=== PATIENT | male | born 1985 | race Caucasian/White ===

== ENCOUNTER 2021-01-02 22:43 | Emergency (ER) | payer OTHER ==
[2021-01-03 00:27] LABS: BILIRUBIN NEGATIVE (NEGATIVE); BLOOD NEGATIVE Ery/uL (NEGATIVE); CLARITY CLEAR (CLEAR); COLOR YELLOW (YELLOW); GLUCOSE (U) 3+ mg/dL (NORMAL); LEUKOCYTES NEGATIVE Leu/uL (NEGATIVE); NITRITE NEGATIVE (NEGATIVE); PROTEIN NEGATIVE (NEGATIVE); SPECIFIC GRAVITY 1.025 (1.001-1.030); UROBILINOGEN 0.2 mg/dL (0.2-1.0)
[2021-01-03] MEDS ORDERED: FLOMAX 0.4 MG0.4 MG PO (01:03)
[2021-01-03] MEDS ORDERED: MACRODANTIN100 MG PO (01:03)
== END 2021-01-03 01:27 | disposition home or self-care (01) ==
LOC: FER 22:43
PROVIDERS: Emergency Medicine
DX: R33.9 Retention of urine, unspecified (principal); F17.210 Nicotine dependence, cigarettes, uncomplicated
CPT/HCPCS: 81003

== ENCOUNTER 2021-01-03 11:56 | Emergency (ER) | payer OTHER ==
[~2021-01-03 11:56] MED LIST: FLOMAX 0.4 MG0.4 MG PO; MACRODANTIN100 MG PO
== END 2021-01-03 13:55 | disposition home or self-care (01) ==
LOC: FER 11:56
DX: T83.038A Leakage of other urinary catheter, initial encounter (principal); R33.9 Retention of urine, unspecified; F17.210 Nicotine dependence, cigarettes, uncomplicated; Y84.6 Urinary catheterization as the cause of abnormal reaction of the patient, or of later complication, without mention of misadventure at the time of the procedure
CPT/HCPCS: 99283

== ENCOUNTER 2021-05-09 06:51 | Inpatient (IN) | payer OTHER ==
[~2021-05-09] VITALS: Ht 188 cm; Wt 121.2 kg
[2021-05-09 08:04] LABS: BASOPHIL 1.2 % (0-2); EOSINOPHIL 1.4 % (0-5); HGB 14.3 g/dl (13.2-18.0); LYMPHOCYTE 30.6 % (15-48); MCH 32.4 pg (25.0-31.0); MPV 10.2 fL (6.0-9.5); NRBC 0; PLT 251 K/uL (150-400); RBC 4.42 M/uL (4.70-6.00); RDW 12.5 % (11.5-14.0); WBC 8.5 K/uL (4.0-10.5)
[2021-05-09 08:50] LABS: BILIRUBIN NEGATIVE (NEGATIVE); BLOOD TRACE-INTACT Ery/uL (NEGATIVE); CLARITY CLEAR (CLEAR); COLOR YELLOW (YELLOW); GLUCOSE (U) 3+ mg/dL (NORMAL); LEUKOCYTES NEGATIVE Leu/uL (NEGATIVE); NITRITE NEGATIVE (NEGATIVE); PROTEIN NEGATIVE (NEGATIVE); SPECIFIC GRAVITY 1.015 (1.001-1.030); UROBILINOGEN 0.2 mg/dL (0.2-1.0); pH 5.5 (5.0-9.0)
[2021-05-09 08:54] LABS: AMPHETAMINES NEGATIVE (NEGATIVE); BARBITURATES NEGATIVE (NEGATIVE); ECSTASY (MDMA) NEGATIVE (NEGATIVE); MARIJUANA (THC) NEGATIVE (NEGATIVE); METHADONE NEGATIVE (NEGATIVE); OPIATES NEGATIVE (NEGATIVE); OXYCODONE NEGATIVE (NEGATIVE)
[2021-05-09 08:59] LABS: BACTERIA TRACE; URINARY WBC RARE
[2021-05-09 09:17] LABS: IRON % SATURATION 52.4 %SAT (20-50)
[2021-05-09 09:24] LABS: PRO-BNP 54 pg/mL (<125)
[2021-05-09 09:25] LABS: ALBUMIN 3.5 g/dL (3.4-5.0); BILIRUBIN - TOTAL 0.5 mg/dL (0.2-1.0); BUN/CREAT RATIO (CALC) 40.5 RATIO; CREATININE 0.37 mg/dL (0.67-1.17); GLOBULIN (CALCULATION) 3.1 g/dL; POTASSIUM 3.8 mmol/L (3.5-5.1); TOTAL PROTEIN 6.6 g/dL (6.4-8.2)
[2021-05-09 09:28] LABS: LACTIC ACID <0.3 mmol/L (0.4-1.9)
[2021-05-09 09:39] LABS: INR 0.96 (0.9-1.2); PROTHROMBIN TIME 12.2 SECONDS (11.8-13.4); PTT 30.1 SECONDS (24.4-34.7)
[2021-05-09 11:03] LABS: CPK 74 U/L (39-308); LDH 161 U/L (85-227); LIPASE 178 U/L (73-393); MAGNESIUM 2.2 mg/dL (1.8-2.4)
[2021-05-09 11:05] LABS: C-REACTIVE PROTEIN < 0.20 mg/dL (<=0.90)
[2021-05-09 13:55] LABS: CREATININE 0.4 mg/dL (0.67-1.17); POTASSIUM 3.7 mmol/L (3.5-5.1)
[2021-05-09 21:08] LABS: BUN/CREAT RATIO (CALC) 22.6 RATIO; CREATININE 0.31 mg/dL (0.67-1.17); POTASSIUM 3.4 mmol/L (3.5-5.1)
[2021-05-10 07:14] LABS: BASOPHIL 0.9 % (0-2); EOSINOPHIL 1.5 % (0-5); HCT 38.4 % (42.0-52.0); HGB 13.1 g/dl (13.2-18.0); LYMPHOCYTE 37.1 % (15-48); MCH 32.2 pg (25.0-31.0); MCHC 34.1 g/dL (32.0-36.0); MCV 94.3 fL (78.0-100.0); MPV 9.7 fL (6.0-9.5); NEUTROPHIL 52.3 % (41-80); NRBC 0; PLT 169 K/uL (150-400); RBC 4.07 M/uL (4.70-6.00); RDW 12.7 % (11.5-14.0); WBC 6.6 K/uL (4.0-10.5)
[2021-05-10 07:26] LABS: BUN/CREAT RATIO (CALC) 23.1 RATIO; CREATININE 0.26 mg/dL (0.67-1.17); MAGNESIUM 1.9 mg/dL (1.8-2.4); POTASSIUM 3.1 mmol/L (3.5-5.1)
[2021-05-10] MEDS ORDERED: Glucometer (13:29)
[2021-05-10] MEDS ORDERED: SEMGLEE100 UNIT/1 SC (13:29)
[2021-05-10] MEDS ORDERED: HUMULIN R100 UNIT/2 SC (13:29)
[2021-05-10] MEDS ORDERED: Glucose test strips (13:29)
== END 2021-05-10 14:21 | disposition home or self-care (01) | DRG 638 ==
LOC: FER 06:51 → FICU 14:35
PROVIDERS: Emergency Medicine; ADMIT Internal Medicine
DX: E11.10 Type 2 diabetes mellitus with ketoacidosis without coma (principal); Z68.1 Body mass index [BMI] 19.9 or less, adult; F10.20 Alcohol dependence, uncomplicated; K86.89 Other specified diseases of pancreas; Z20.822 Contact with and (suspected) exposure to COVID-19; F17.200 Nicotine dependence, unspecified, uncomplicated; E87.6 Hypokalemia; R63.4 Abnormal weight loss; Z71.6 Tobacco abuse counseling
CPT/HCPCS: 36415; 36600; 71045; 80048; 80053; 80305; 81001; 82009; 82550; 82728; 82803; 82962; 83036; 83540; 83550; 83605; 83615; 83690; 83735; 83880; 84100; 84145; 84439; 84443; 84484; 84550; 84681; 85025; 85610; 85730; 86140; 93005; G0480; J1170; J1650; J1815; J2405; J3411; J3475; J3480; J7030; U0002

== ENCOUNTER 2021-10-04 19:09 | Day surgery (SDCO) | payer OTHER ==
[~2021-10-04] VITALS: Ht 188 cm; Wt 90.1 kg
[~2021-10-04 19:09] MED LIST changes: +Glucometer; +Glucose test strips; +HUMULIN R100 UNIT/2 SC; +SEMGLEE100 UNIT/1 SC
[2021-10-04 19:32] LABS: BASOPHIL 0.3 % (0-2); EOSINOPHIL 0.1 % (0-5); HCT 49.6 % (42.0-52.0); HGB 16.7 g/dl (13.2-18.0); LYMPHOCYTE 12.2 % (15-48); MCH 31.8 pg (25.0-31.0); MCHC 33.7 g/dL (32.0-36.0); MCV 94.5 fL (78.0-100.0); MONOCYTE 4.8 % (0-12); MPV 9.6 fL (6.0-9.5); NEUTROPHIL 81.9 % (41-80); NRBC 0; PLT 265 K/uL (150-400); RBC 5.25 M/uL (4.70-6.00); RDW 12.8 % (11.5-14.0); WBC 15.3 K/uL (4.0-10.5)
[2021-10-04 19:57] LABS: BUN/CREAT RATIO (CALC) 14.1 RATIO; CREATININE 0.64 mg/dL (0.67-1.17); POTASSIUM 3.7 mmol/L (3.5-5.1)
[2021-10-04 20:49] LABS: BILIRUBIN NEGATIVE (NEGATIVE); BLOOD NEGATIVE Ery/uL (NEGATIVE); CLARITY CLEAR (CLEAR); COLOR YELLOW (YELLOW); GLUCOSE (U) 1+ mg/dL (NORMAL); LEUKOCYTES NEGATIVE Leu/uL (NEGATIVE); NITRITE NEGATIVE (NEGATIVE); PROTEIN NEGATIVE (NEGATIVE); SPECIFIC GRAVITY >=1.030 (1.001-1.030); UROBILINOGEN 0.2 mg/dL (0.2-1.0)
[2021-10-05] MEDS ORDERED: METFORMIN HCL500 MG PO ×2 (00:55→15:06)
[2021-10-05] MEDS ORDERED: TAMSULOSIN HCL0.4 MG PO (00:57)
[2021-10-05] MEDS ORDERED: LANTUS **100 UNITS/ SC ×2 (00:58→15:06)
[2021-10-05] MEDS ORDERED: INSULIN AS100 UNIT/3 SC (01:01)
[2021-10-05 06:37] LABS: BASOPHIL 0.4 % (0-2); EOSINOPHIL 1.3 % (0-5); HCT 44.4 % (42.0-52.0); HGB 14.7 g/dl (13.2-18.0); MCH 31.3 pg (25.0-31.0); MCHC 33.1 g/dL (32.0-36.0); MCV 94.7 fL (78.0-100.0); MONOCYTE 7.7 % (0-12); MPV 9.9 fL (6.0-9.5); NEUTROPHIL 61.9 % (41-80); NRBC 0; PLT 228 K/uL (150-400); RBC 4.69 M/uL (4.70-6.00); RDW 13.2 % (11.5-14.0); WBC 10.1 K/uL (4.0-10.5)
[2021-10-05 07:01] LABS: ALBUMIN 3.5 g/dL (3.4-5.0); BILIRUBIN - TOTAL 0.5 mg/dL (0.2-1.0); BUN/CREAT RATIO (CALC) 15.5 RATIO; CREATININE 0.71 mg/dL (0.67-1.17); GLOBULIN (CALCULATION) 3.4 g/dL; MAGNESIUM 2.3 mg/dL (1.8-2.4); PHOSPHORUS 3.9 mg/dL (2.6-4.7); POTASSIUM 4.1 mmol/L (3.5-5.1); TOTAL PROTEIN 6.9 g/dL (6.4-8.2)
--- NOTE | 2021-10-05 11:15 | NUR ---
10/05/21 Please consider full admit or discharge. Thank You.
== END 2021-10-05 15:31 | disposition home or self-care (01) ==
LOC: FER 19:09 → FMS 22:09
PROVIDERS: Internal Medicine; Nurse Practitioner; ADMIT Internal Medicine
DX: E11.649 Type 2 diabetes mellitus with hypoglycemia without coma (principal); F10.10 Alcohol abuse, uncomplicated; I10 Essential (primary) hypertension; F32.A Depression, unspecified; R03.0 Elevated blood-pressure reading, without diagnosis of hypertension; F17.210 Nicotine dependence, cigarettes, uncomplicated; F12.90 Cannabis use, unspecified, uncomplicated; Z20.822 Contact with and (suspected) exposure to COVID-19; Z79.4 Long term (current) use of insulin
CPT/HCPCS: 36415; 71045; 80048; 80053; 80061; 81003; 83036; 83735; 84100; 85025; 96372; G0378; J1610; J7030; U0002